=== PATIENT | male | born 1950 | race African-American/Black ===

== ENCOUNTER 2018-09-30 17:35 | Emergency (ER) | payer OTHER | END 2018-09-30 20:15 | disposition home or self-care (01) | LOC: JERFT 17:35 ==

== ENCOUNTER 2018-10-04 19:03 | Emergency (ER) | payer OTHER | END 2018-10-04 20:59 | disposition home or self-care (01) | LOC: JERFT 19:03 ==

== ENCOUNTER 2018-10-07 13:29 | Emergency (ER) | payer OTHER ==
[2018-10-07 13:45] VITALS: BP 135/78; PULSE 64; TEMP 98.1; BMI 29.0
--- NOTE | 2018-10-07 13:45 | PDOC ---
Rapid Medical Evaluation Chief Complaint: Suture/Staple Removal (other) Time Seen by Provider: 10/07/18 13:42 Medical Evaluation: Allergies Allergy/AdvReac Type Severity Reaction Status Date / Time No Known Allergies Allergy Verified 09/30/18 17:56 10/07/18 13:42 I have performed a brief in-person evaluation of this patient. The patient presents with a chief complaint of: suture removal left 3rd digit tip Pertinent physical exam findings: well approx, , sutures intact. I have ordered the following: nothing The patient will proceed to the ED for further evaluation. 10/07/18 13:44
--- NOTE | 2018-10-07 14:12 | PDOC ---
Suture Removal/Wound Check HPI - History of Present Illness Chief Complaint: Suture/Staple Removal (other) Stated Complaint: STITCHES REMOVAL Time Seen by Provider: 10/07/18 13:42 History Source: Yes: Patient - Previous ED Treatment Type of procedure performed on last visit: Yes: Laceration Repair Tetanus Immunization: Yes: Up to Date Past History - Travel Traveled outside of the country in the last 30 days: No - Past Medical History Allergies/Adverse Reactions: Allergies Allergy/AdvReac Type Severity Reaction Status Date / Time No Known Allergies Allergy Verified 10/07/18 13:45 Home Medications: Ambulatory Orders Multivitamin [Poly-Vitamin] 1 each PO DAILY #30 tab.chew 06/22/18 Alcohol Antiseptic Pads [Alcohol Swabs] 1 each TP TID #1 med..pad 08/13/18 Miscellaneous Medical Supply [Glucometer Device] 1 each SQ ASDIR #1 kit Miscellaneous Medical Supply [Glucometer Test Strips #100] 1 each SQ ASDIR #1 box 08/13/18 Abacavir/Dolutegravir/Lamivudi [Triumeq 600-50-300 mg Tablet] 1 each PO DAILY # 30 tablet 09/02/18 Amlodipine Besylate [Norvasc -] 10 mg PO DAILY #30 tablet 09/02/18 Atorvastatin Ca [Lipitor] 40 mg PO HS #30 tablet 09/02/18 Cholecalciferol (Vitamin D3) [Vitamin D3 -] 2,000 unit PO DAILY #60 tab Hydrochlorothiazide [Hctz -] 25 mg PO DAILY #30 tablet 09/02/18 Lisinopril [Prinivil] 5 mg PO DAILY #30 tablet 09/02/18 Cephalexin Monohydrate [Keflex -] 500 mg PO BID 7 Days #14 capsule 09/30/18 Ibuprofen 800 mg PO Q8H PRN #20 tablet 09/30/18 Anemia: No Asthma: No Cancer: Yes (prostate ca - s/p radiation; sees urology every 6 mo) Cardiac Disorders: No COPD: No CHF: No Diabetes: No HTN: Yes Hypercholesterolemia: Yes Liver Disease: No Seizures: No - Surgical History Orthopedic Surgery: Yes (TORN MENISCUS - left knee, 2010) - Immunization History Immunization Up to Date: No - Suicide/Smoking/Psychosocial Hx Smoking History: Never smoked Have you smoked in the past 12 months: No Cigars Per Day: 0 Information on smoking cessation initiated: No Hx Alcohol Use: No Drug/Substance Use Hx: No Substance Use Type: None Hx Substance Use Treatment: No (N/A) Suture Removal/Wound Check PE - Physical Exam Current Severity Level: None Location of Laceration/Wound: left: Finger (middle finger) *Review of Systems - Review of Systems Constitutional: No: Chills, Fever Musculoskeletal: No: Joint Pain Integumentary: Yes: Other (left middle finger lac). No: Erythema, Rash *Physical Exam - Vital Signs Last Vital Signs Temp Pulse Resp BP Pulse Ox 98.1 F 64 18 135/78 98 10/07/18 13:41 10/07/18 13:41 10/07/18 13:41 10/07/18 13:41 10/07/18 13:41 - Physical Exam General Appearance: Yes: Nourished Extremity: positive: Normal Capillary Refill, Normal Range of Motion, Other ( left middle finger: healing lac in distal phalanx, stitches intact, no warmth, discharge noted, FROM and sensation intact) Medical Decision Making - Medical Decision Making Left middle finger lac repaired with stitches on 09/30/18 pt is here for suture removal UTD with vaccines healing lac 6 stitches removed with ease from distal left finger 10/07/18 14:15 *DC/Admit/Observation/Transfer Diagnosis at time of Disposition: Encounter for removal of sutures - Discharge Dispostion Disposition: HOME Condition at time of disposition: Stable - Referrals - Patient Instructions Printed Discharge Instructions: DI for Suture Removal - Post Discharge Activity
== END 2018-10-07 14:23 | disposition home or self-care (01) ==
LOC: JER 13:29 → JERFT 13:29
DX: Z48.817 Encounter for surgical aftercare following surgery on the skin and subcutaneous tissue (principal); Z48.02 Encounter for removal of sutures
CPT/HCPCS: 99281-25